=== PATIENT | female | born 1960 | race Hispanic/Latino ===

== ENCOUNTER 2017-01-17 18:41 | Emergency (ER) | payer MEDICAID ==
[2017-01-17 18:46] VITALS: BP 152/91; PULSE 90; RESP 20; TEMP 98.2; O2SAT 98
--- NOTE | 2017-01-17 19:07 | ED PDOC ---
HPI: Headache Time Seen by Provider: 01/17/17 18:49 Chief Complaint (Nursing): Trauma Chief Complaint (Provider): Head injury History Per: Patient Additional Complaint(s): pt is a 56 yo female, denies nay PMH, presents to ED with complaints of a possible concussion s/p fall on Wednesday. Pt reports she was drinking and tripped over her dog, and she is unsure if she had LOC. Pt reports that since then she has had headache, dizziness and nauseous. Past Medical History Reviewed: Nursing Documentation, Vital Signs Vital Signs: Last Vital Signs Temp 98.2 F 01/17/17 18:43 Pulse 90 01/17/17 18:43 Resp 20 01/17/17 18:43 BP 152/91 H 01/17/17 18:43 Pulse Ox 98 01/17/17 18:43 - Medical History PMH: No Chronic Diseases, Pneumonia (x 2) - Surgical History Surgical History: Tonsillectomy - Family History Family History: States: No Known Family Hx - Living Arrangements Living Arrangements: With Family - Social History Current smoker - smoking cessation education provided: No Alcohol: Social Drugs: Denies - Allergies Allergies/Adverse Reactions: Allergies Allergy/AdvReac Type Severity Reaction Status Date / Time No Known Allergies Allergy Verified 10/13/15 21:20 Review of Systems ROS Statement: Except As Marked, All Systems Reviewed And Found Negative Neurological: Positive for: Headache Physical Exam - Reviewed Nursing Documentation Reviewed: Yes Vital Signs Reviewed: Yes - Physical Exam Appears: Positive for: Well, Non-toxic, No Acute Distress Head Exam: Positive for: ATRAUMATIC, NORMAL INSPECTION, NORMOCEPHALIC Skin: Positive for: Normal Color, Warm, DRY Eye Exam: Positive for: EOMI, Normal appearance, PERRL ENT: Positive for: Normal ENT Inspection Neck: Positive for: Normal, Painless ROM Cardiovascular/Chest: Positive for: Regular Rate, Rhythm Respiratory: Positive for: CNT, Normal Breath Sounds Gastrointestinal/Abdominal: Positive for: Normal Exam, Bowel Sounds, Soft Back: Positive for: Normal Inspection Extremity: Positive for: Normal ROM Neurologic/Psych: Positive for: Alert, Oriented - ECG O2 Sat by Pulse Oximetry: 98 Medical Decision Making Medical Decision Making: Medicated with Acetaminophen and reglan PO Head CT ordered Case endorsed to BRIAN Sánchez at 20:00 pending diagnostic review and re-eval Disposition - Clinical Impression Clinical Impression: Head injury - Patient ED Disposition Is Patient to be Admitted: No - Disposition Disposition: Transfer of Care (Princess) Disposition Time: 19:55 Condition: STABLE - POA Present On Arrival: None
--- NOTE | 2017-01-17 20:37 | ED PDOC ---
- ECG O2 Sat by Pulse Oximetry: 98 - Progress ED Course And Treament: Case endorsed to insurance underwriter sales from [place] [facility] pending CT head EXAM: CT Head Without Intravenous Contrast CLINICAL HISTORY: 56 years old, female; Injury or trauma; Fall; Initial encounter; Concussion / head injury; Consciousness not specified; Injury date: 01-12-2017; Injury details: Pt states: She tripped over dog and fell; Additional info: Head injury, fall wednesday TECHNIQUE: Axial computed tomography images of the head/brain without intravenous contrast. This CT exam was performed using one or more of the following dose reduction techniques: automated exposure control, adjustment of the mA and/or kV according to patient size, and/or use of iterative reconstruction technique. Coronal and sagittal reformatted images were created and reviewed. EXAM DATE/TIME: 01/17/2017 7:08 PM COMPARISON: There are no prior studies for comparison. FINDINGS: Brain: There is mild prominence of sulci, gyri and ventricles. There is no midline shift. There are no intra-axial or extra axial mass lesions or areas of hemorrhage. Metz-white differentiation is maintained. Ventricles: See above. Bony structures: Cranial vault is intact. Soft tissues: unremarkable Sinuses: There is partial opacification of ethmoid air cells. There is mucoperiosteal thickening in the maxillary sinuses. Ears and mastoids: Middle ears and mastoids unremarkable. Orbits: Orbital contents are unremarkable. IMPRESSION: No acute intracranial abnormalities Patient educated on findings, discharged with instructions to follow up PMD 2-3 days. Advised tylenol/ibuprofen PRN headaches. Return to ED for worsening/concerning symptoms. Disposition - Clinical Impression Clinical Impression: Head injury - POA Present On Arrival: None - Disposition Disposition: Routine/Home Disposition Time: 20:37 Condition: STABLE Additional Instructions: Follow up with primary doctor in 2-3 days. Take Tylenol or Ibuprofen as directed, as needed for headaches. Return to ED for worsening/concerning symptoms. Instructions: Head Injury (ED)
== END 2017-01-17 20:40 | disposition home or self-care (01) ==
LOC: H.ER 18:41
DX: S09.90XA Unspecified injury of head, initial encounter (principal); W19.XXXA Unspecified fall, initial encounter; Y92.89 Other specified places as the place of occurrence of the external cause

== ENCOUNTER 2017-01-20 02:33 | Observation (INO) | payer MEDICAID ==
[2017-01-20 02:47] VITALS: O2SAT 97
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
[2017-01-20 03:22] LABS: BASO # 0.1 K/uL (0.0-0.2); BASO % 0.7 % (0.0-2.0); EOS % 0.4 % (0.0-4.0); HEMOGLOBIN 14.3 g/dL (12.0-16.0); LYMPH # 2.4 K/uL (1.0-4.3); LYMPH % 26.5 % (20.0-40.0); MEAN CELL VOLUME 94.6 fl (81.0-99.0); MEAN CORPUSCULAR HEMOGLOBIN 32.3 pg (27.0-31.0); MEAN CORPUSCULAR HGB CONC 34.1 g/dL (33.0-37.0); MEAN PLATELET VOLUME 7.5 fl (7.2-11.7); MONO # 0.9 K/uL (0.0-0.8); MONO % 9.9 % (0.0-10.0); NEUT # 5.6 K/uL (1.8-7.0); NEUT % 62.5 % (50.0-75.0); NRBC % 0.1 % (0.0-0.0); RBC 4.44 Mil/uL (3.80-5.20); RED CELL DISTRIBUTION WIDTH 13.5 % (11.5-14.5)
[2017-01-20 03:25] LABS: BARBITURATES, UR NEGATIVE (NEGATIVE)
[2017-01-20 03:26] LABS: BENZODIAZEPINES, UR NEGATIVE (NEGATIVE)
[2017-01-20 03:28] LABS: OPIATES, UR POSITIVE (NEGATIVE)
[2017-01-20 03:29] LABS: PHENCYCLIDINE, UR NEGATIVE (NEGATIVE)
[2017-01-20 03:39] LABS: BLOOD UREA NITROGEN 8 mg/dl (7-17); CALCIUM 9.7 mg/dL (8.4-10.2); GFR AFRICAN-AMERICAN > 60; GFR NON-AFRICAN AMERICAN > 60
[2017-01-20 03:42] LABS: SALICYLATE < 1.0 mg/dl
[2017-01-20 03:45] LABS: ACETAMINOPHEN < 10.0 ug/ml (10.0-30.0)
[2017-01-20 06:03] VITALS: RESP 18
[2017-01-20 06:31] LABS: URINE BILIRUBIN NEGATIVE (NEGATIVE); URINE BLOOD NEGATIVE (NEGATIVE); URINE CLARITY CLEAR (Clear); URINE COLOR COLORLESS (YELLOW); URINE GLUCOSE (UA) NEG (Normal); URINE LEUKOCYTE ESTERASE NEG Leu/uL (Negative); URINE NITRATE NEGATIVE (NEGATIVE); URINE PROTEIN NEGATIVE (NEGATIVE); URINE UROBILINOGEN 0.2-1.0 mg/dL (0.2-1.0)
[2017-01-20] MEDS ORDERED: Potassium Chloride 20 mEq ER Tab PO STA (06:35)
--- NOTE | 2017-01-20 07:21 | ED PDOC ---
- Laboratory Results Result Diagrams: 01/20/17 03:17 01/20/17 03:17 - ECG O2 Sat by Pulse Oximetry: 97 (RA) Disposition - Clinical Impression Clinical Impression: Major depressive disorder, single episode, unspecified - POA Present On Arrival: None - Disposition Disposition: Routine/Home Disposition Time: 11:53 Condition: STABLE Addendum Addendum: 01/20/17 07:[address] out [address] Bobo pending Crisis evaluation.
[2017-01-20] MEDS ORDERED: Potassium Chloride 20 mEq ER Tab PO SCH (09:00)
[2017-01-20 10:58] VITALS: BP 136/79; PULSE 92; TEMP 97
== END 2017-01-20 11:53 | disposition home or self-care (01) ==
LOC: H.ER 02:33 → H.EROBSV 06:00
PROVIDERS: ADMIT Emergency Medicine; ATTEND Emergency Medicine
DX: F32.9 Major depressive disorder, single episode, unspecified (principal); E78.00 Pure hypercholesterolemia, unspecified; F10.129 Alcohol abuse with intoxication, unspecified; Y90.7 Blood alcohol level of 200-239 mg/100 ml

== ENCOUNTER 2018-09-17 17:11 | Emergency (ER) | payer MEDICAID ==
[2018-09-17 17:45] VITALS: BMI 30.4
[2018-09-17] MEDS ORDERED: Naproxen 500 MG TAB PO ONE ×2 (17:45→17:52)
[2018-09-17 17:50] VITALS: BP 169/94; PULSE 82; RESP 18; TEMP 98; O2SAT 100
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
--- NOTE | 2018-09-18 09:27 | RAD ---
Date of service: 09/17/2018 PROCEDURE: Right Foot Radiographs. HISTORY: pain and swelling COMPARISON: None. FINDINGS: BONES: No acute fracture. JOINTS: Normal. SOFT TISSUES: Normal. OTHER FINDINGS: Inferior plantar calcaneal spur. IMPRESSION: No demonstrated fracture or dislocation.
== END 2018-09-17 19:05 | disposition home or self-care (01) ==
LOC: H.ER 17:11
DX: M77.31 Calcaneal spur, right foot (principal); E78.00 Pure hypercholesterolemia, unspecified